=== PATIENT | female | born 2000 | race American Indian/Alaskan Native ===

== ENCOUNTER 2021-09-02 10:26 | Emergency (ER) | payer OTHER ==
[2021-09-02 11:20] VITALS: BP 110/73
[2021-09-02] MEDS ORDERED: ACETAMINOPHEN 500 MG TAB PO ONE (11:40)
--- NOTE | 2021-09-02 11:41 | Emergency Department Report ---
ED HPI - General Chief complaint: OB/Uterine Contractions Stated complaint: 15WKS /STOMACH PAIN Time Seen by Provider: 09/02/21 11:25 Source: patient Mode of arrival: Ambulatory Limitations: No Limitations - History of Present Illness Initial comments: Patient a 20-year-old female who is G1, who presents for bilateral lower abdominal cramping since 6 AM. Described at 5/10 pressure. Patient denies dysuria frequency urgency or hematuria. No abnormal vaginal discharge. No vaginal bleeding. No fevers or chills. There is noted an associated back pain patient does have [facility] [place] DOP SON plan delivery for [facility] last menstrual cycle 04/17/2021. Patient denies nausea vomiting. MD Complaint: abdominal pain Onset/Timin -: hour(s) - Related Data Previous Rx's Medication Instructions Recorded Last Taken Type Acetaminophen [Acetaminophen TAB] 650 mg PO Q6HR PRN #30 tablet 09/02/21 Unknown Rx Dicyclomine [Bentyl] 10 mg PO QID PRN #30 capsule 09/02/21 Unknown Rx Allergies Allergy/AdvReac Type Severity Reaction Status Date / Time No Known Allergies Allergy Verified 09/02/21 11:21 ED Review of Systems ROS: Stated complaint: 15WKS /STOMACH PAIN Other details as noted in HPI Constitutional: denies: chills, fever Eyes: denies: eye pain, eye discharge, vision change ENT: denies: ear pain, throat pain Respiratory: denies: cough, shortness of breath, wheezing Cardiovascular: denies: chest pain, palpitations Endocrine: no symptoms reported Gastrointestinal: abdominal pain. denies: nausea, vomiting, diarrhea, constip ation, hematemesis, melena Genitourinary: denies: urgency, dysuria, frequency, hematuria, discharge, dyspareunia Musculoskeletal: back pain Skin: denies: rash, lesions Neurological: as per HPI Psychiatric: denies: anxiety, depression Hematological/Lymphatic: denies: easy bleeding, easy bruising ED Past Medical Hx - Medications Home Medications: Home Medications Medication Instructions Recorded Confirmed Last Taken Type Acetaminophen [Acetaminophen TAB] 650 mg PO Q6HR PRN #30 tablet 09/02/21 Unknown Rx Dicyclomine [Bentyl] 10 mg PO QID PRN #30 capsule 09/02/21 Unknown Rx ED Physical Exam - General Limitations: No Limitations General appearance: alert, in no apparent distress - Head Head exam: Present: atraumatic, normocephalic - Eye Eye exam: Present: normal appearance, EOMI Pupils: Present: normal accommodation - ENT ENT exam: Present: mucous membranes moist - Neck Neck exam: Present: normal inspection, full ROM. Absent: tenderness - Respiratory Respiratory exam: Present: normal lung sounds bilaterally. Absent: respiratory distress, wheezes - Cardiovascular Cardiovascular Exam: Present: regular rate, normal rhythm, normal heart sounds. Absent: systolic murmur, diastolic murmur, rubs, gallop - GI/Abdominal GI/Abdominal exam: Present: soft, normal bowel sounds. Absent: distended - Rectal Rectal exam: Present: deferred - Extremities Exam Extremities exam: Present: normal inspection, full ROM, normal capillary refill. Absent: tenderness, pedal edema - Back Exam Back exam: Present: normal inspection, full ROM. Absent: CVA tenderness (R), CVA tenderness (L) - Neurological Exam Neurological exam: Present: alert, oriented X3, CN II-XII intact, normal gait - Psychiatric Psychiatric exam: Present: normal affect, normal mood - Skin Skin exam: Present: warm, dry, intact, normal color. Absent: rash ED Course Vital Signs 09/02/21 09/02/21 11:16 12:07 Temperature 98 F Pulse Rate 65 Respiratory 18 14 Rate Blood Pressure 110/73 [Left] O2 Sat by Pulse 99 Oximetry ED Medical Decision Making - Lab Data Result diagrams: 09/02/21 11:51 Labs 09/02/21 09/02/21 09/02/21 11:51 11:51 13:45 WBC 5.6 RBC 3.70 Hgb 11.9 Hct 33.8 MCV 91 MCH 32 MCHC 35 H RDW 14.1 Plt Count 212 Lymph % (Auto) 31.0 [place] % (Auto) 6.5 Eos % (Auto) 2.2 Baso % (Auto) 0.9 Lymph # (Auto) 1.7 [place] # (Auto) 0.4 Eos # (Auto) 0.1 Baso # (Auto) 0.1 Seg Neutrophils % 59.4 Seg Neutrophils # 3.3 HCG, Quant 89889 H Urine Color Yellow Urine Turbidity Clear Urine pH 7.0 Ur Specific [place] 1.017 Urine Protein <15 mg/dl Urine Glucose (UA) Neg Urine Ketones Neg Urine Blood Neg Urine Nitrite Neg Urine Bilirubin Neg Urine Urobilinogen < 2.0 Ur Leukocyte Esterase Neg Urine WBC (Auto) 1.0 Urine RBC (Auto) < 1.0 U Epithel Cells (Auto) < 1.0 - Radiology Data Radiology results: report reviewed, image reviewed OB Ultrasound HISTORY: abd pain 15 weeks preg. TECHNIQUE: Grayscale and color imaging performed. COMPARISON: None FINDINGS: Single viable intrauterine gestation with cephalic presentation and anterior placenta. Heart rate was 140 bpm. Cervical length is 3.8 cm. Overall EGA is 15 weeks and 1 day by ultrasound with estimated delivery date of 02/23/2022. This is compared to a clinical gestational age of 15 weeks and 2 days. IMPRESSION: Single viable intrauterine gestation as above. Signer Name: Baljit Hong MD Signed: 09/02/2021 1:14 PM Workstation Name: [id number] Transcribed By: BENITO Dictated By: Baljit Hong MD Electronically Authenticated By: Baljit Hong MD Signed Date/Time: 09/02/21 131 DD/ 131 TD/TT: - Medical Decision Making Ultrasound single IUP 13 weeks 1 day, hCG quant 59,111, CBC is normal, UA is normal, plan follow-up with [facility] call for sooner appointment. Tylenol as needed for pain. Hydrate as directed. Return to emergency department should symptoms worsen. Critical care attestation.: If time is entered above; I have spent that time in minutes in the direct care of this critically ill patient, excluding procedure time. ED Disposition Clinical Impression: Abdominal pain during Qualifiers: Trimester: second trimester Qualified Code(s): O26.892 - Other specified pre gnancy related conditions, second trimester; R10.9 - Unspecified abdominal pain Disposition: 01 HOME / SELF CARE / HOMELESS Is pt being admited?: No Does the pt Need Aspirin: No Condition: Stable Instructions: Abdominal Pain During , [id number], Abdominal Pain D uring Additional Instructions: Take medications as prescribed, hydrate as directed. Follow-up with your [facility] doctor call for sooner appointment. Return to emergency department should symptoms worsen Prescriptions: Acetaminophen [Acetaminophen TAB] 650 mg PO Q6HR PRN #30 tablet PRN Reason: Pain Dicyclomine [Bentyl] 10 mg PO QID PRN #30 capsule PRN Reason: abdominal cramping Referrals: YAO CHANG MD [Referring] - 3-5 Days Forms: Work/School Release Form(ED) Time of Disposition: 14:26
[2021-09-02 12:28] LABS: Basophils # (Auto) 0.1 K/mm3 (0.0-0.1); Basophils % (Auto) 0.9 % (0.0-1.8); Eosinophils # (Auto) 0.1 K/mm3 (0.0-0.4); Eosinophils % (Auto) 2.2 % (0.0-4.3); Hematocrit 33.8 % (30.3-42.9); Hemoglobin 11.9 gm/dl (10.1-14.3); Lymphocytes # (Auto) 1.7 K/mm3 (1.2-5.4); Mean Corpuscular HGB Conc 35 % (30-34); Mean Corpuscular Volume 91 fl (79-97); Monocytes # (Auto) 0.4 K/mm3 (0.0-0.8); Monocytes % (Auto) 6.5 % (0.0-7.3); Platelet Count 212 K/mm3 (140-440); Red Cell Distribution Width 14.1 % (13.2-15.2)
--- NOTE | 2021-09-02 13:19 | Ultrasound Report ---
OB Ultrasound HISTORY: abd pain 15 weeks preg. TECHNIQUE: Grayscale and color imaging performed. COMPARISON: None FINDINGS: Single viable intrauterine gestation with cephalic presentation and anterior placenta. Hear t rate was 140 bpm. Cervical length is 3.8 cm. Overall EGA is 15 weeks and 1 day by ultrasound with e stimated delivery date of 02/23/2022. This is compared to a clinical gestational age of 15 weeks and 2 days. IMPRESSION: Single viable intrauterine gestation as above. Signer Name: Baljit Hong MD Signed: 09/02/2021 1:14 PM Workstation Name: [id number]
[2021-09-02 14:11] LABS: Bilirubin,Urine NEG (Negative); Blood,Urine NEG (Negative); Color,Urine Yellow (Yellow); Protein,Urine <15 mg/dL mg/dL (Negative); RBC,Urine < 1.0 /HPF (0.0-6.0); Urobilinogen,Urine < 2.0 mg/dL (<2.0)
[2021-09-02] MEDS ORDERED: DICYCLOMINE 20 MG/2 ML INJ IM ONE (14:19)
== END 2021-09-02 14:37 | disposition home or self-care (01) ==
LOC: ED 10:26
DX: O26.892 Other specified pregnancy related conditions, second trimester (principal); R10.30 Lower abdominal pain, unspecified; Z3A.15 15 weeks gestation of pregnancy
CPT/HCPCS: 36415; 76805; 76817; 76830; 81001; 84702; 85025; 99284; J0500